=== PATIENT | female | born 1965 | race American Indian/Alaskan Native ===

== ENCOUNTER 2017-10-02 15:27 | Emergency (ER) | payer MEDICAID ==
[2017-10-02 15:37] VITALS: BP 179/81
--- NOTE | 2017-10-02 17:09 | Emergency Department Report ---
ED ENT HPI - General Chief complaint: Earache Stated complaint: LEFT EAR SWELLING/INSIDE MOUTH Time Seen by Provider: 10/02/17 16:49 Source: patient Mode of arrival: Ambulatory Limitations: No Limitations - History of Present Illness Initial comments: 51-year-old female past medical history hypertension presents with complaint of 2-3 days of left-sided facial swelling left-sided earache and discomfort. Patient denies fevers or chills. Speaking in full sentences. No trismus and no drooling noted. No dyspnea no respiratory distress and no retractions. Patient is able to speak in full sentences. Denies nausea or vomiting. Denies any trauma to face. States she feels pressure inside the left side of her mouth along in her cheek. Onset/Timin -: days(s) Location: L ear Severity: moderate Severity scale (0 -10): 6 Quality: aching Consistency: constant Improves with: none Worsens with: none Associated Symptoms: gum swelling - Related Data Previous Rx's Medication Instructions Recorded Last Taken Type Acetaminophen/Codeine [Tylenol 1 tab PO Q6H PRN #10 tab 10/02/17 Unknown Rx /Codeine # 3 tab] Ciprofloxacin HCl [Cipro] 500 mg PO BID #14 tablet 10/02/17 Unknown Rx Clindamycin [Clindamycin CAP] 300 mg PO Q6H #28 capsule 10/02/17 Unknown Rx Ibuprofen [Motrin] 800 mg PO Q8HR PRN #30 tablet 10/02/17 Unknown Rx Allergies Allergy/AdvReac Type Severity Reaction Status Date / Time iodine Allergy Swelling Verified 10/02/17 15:32 morphine Allergy Unknown Verified 10/02/17 15:32 Penicillins Allergy Unknown Verified 10/02/17 15:32 ED Dental HPI - General Chief complaint: Earache Stated complaint: LEFT EAR SWELLING/INSIDE MOUTH Time Seen by Provider: 10/02/17 16:49 Source: patient Mode of arrival: Ambulatory Limitations: No Limitations - Related Data Previous Rx's Medication Instructions Recorded Last Taken Type Acetaminophen/Codeine [Tylenol 1 tab PO Q6H PRN #10 tab 10/02/17 Unknown Rx /Codeine # 3 tab] Ciprofloxacin HCl [Cipro] 500 mg PO BID #14 tablet 10/02/17 Unknown Rx Clindamycin [Clindamycin CAP] 300 mg PO Q6H #28 capsule 10/02/17 Unknown Rx Ibuprofen [Motrin] 800 mg PO Q8HR PRN #30 tablet 10/02/17 Unknown Rx Allergies Allergy/AdvReac Type Severity Reaction Status Date / Time iodine Allergy Swelling Verified 10/02/17 15:32 morphine Allergy Unknown Verified 10/02/17 15:32 Penicillins Allergy Unknown Verified 10/02/17 15:32 ED Review of Systems ROS: Stated complaint: LEFT EAR SWELLING/INSIDE MOUTH Other details as noted in HPI Constitutional: denies: chills, fever Eyes: denies: eye pain, eye discharge, vision change ENT: as per HPI (left-sided cheek swelling 2-3m days). denies: ear pain, throat pain Respiratory: denies: cough, shortness of breath, wheezing Cardiovascular: denies: chest pain, palpitations Endocrine: no symptoms reported Gastrointestinal: denies: abdominal pain, nausea, diarrhea Genitourinary: denies: urgency, dysuria, discharge Musculoskeletal: denies: back pain, joint swelling, arthralgia Skin: denies: rash, lesions Neurological: denies: headache, weakness, paresthesias Psychiatric: denies: anxiety, depression Hematological/Lymphatic: denies: easy bleeding, easy bruising ED Past Medical Hx - Past Medical History Previous Medical History?: Yes Hx Hypertension: Yes Hx Psychiatric Treatment: Yes (anxiety) Additional medical history: anemia - Surgical History Past Surgical History?: Yes Additional Surgical History: tubaligation, x 2 - Social History Smoking Status: Never Smoker Substance Use Type: Alcohol, Prescribed - Medications Home Medications: Home Medications Medication Instructions Recorded Confirmed Last Taken Type Acetaminophen/Codeine [Tylenol 1 tab PO Q6H PRN #10 tab 10/02/17 Unknown Rx /Codeine # 3 tab] Ciprofloxacin HCl [Cipro] 500 mg PO BID #14 tablet 10/02/17 Unknown Rx Clindamycin [Clindamycin CAP] 300 mg PO Q6H #28 capsule 10/02/17 Unknown Rx Ibuprofen [Motrin] 800 mg PO Q8HR PRN #30 tablet 10/02/17 Unknown Rx ED Physical Exam - General Limitations: No Limitations General appearance: alert, in no apparent distress - Head Head exam: Present: atraumatic, normocephalic - Eye Eye exam: Present: normal appearance, PERRL, EOMI - ENT ENT exam: Present: mucous membranes moist - Expanded ENT Exam Expanded Mouth exam: Present: other (swelling inside left inner cheek) Teeth exam: Present: normal inspection Throat exam: Positive: normal inspection - Neck Neck exam: Present: normal inspection, tenderness (left side angle of jaw parotid gland swelling), lymphadenopathy (left anterior cervical adenopathy) - Expanded Neck Exam Expanded Neck exam: Present: tenderness, anterior neck swelling 1 - Tenderness and swelling here - Respiratory Respiratory exam: Present: normal lung sounds bilaterally. Absent: respiratory distress - Cardiovascular Cardiovascular Exam: Present: regular rate, normal rhythm. Absent: systolic murmur, diastolic murmur, rubs, gallop - GI/Abdominal GI/Abdominal exam: Present: soft, normal bowel sounds - Extremities Exam Extremities exam: Present: normal inspection - Back Exam Back exam: Present: normal inspection - Neurological Exam Neurological exam: Present: alert, oriented X3 - Psychiatric Psychiatric exam: Present: normal affect, normal mood - Skin Skin exam: Present: warm, dry, intact, normal color. Absent: rash ED Course Vital Signs 10/02/17 15:32 Temperature 97.6 F Pulse Rate 75 Respiratory 18 Rate Blood Pressure 179/81 O2 Sat by Pulse 96 Oximetry ED Medical Decision Making - Medical Decision Making A/P: Sided acute parotitis 1-case discussed with Dr. Pires who also examined the patient 2-empiric course of clindamycin and ciprofloxacin as per [email or web address] source=search_[email or web address]~[email or web address]_type=default&display_rank=1# [id number] 3-Motrin when necessary, short course codeine when necessary sialagogues 4-I advised patient to follow up with ENT Critical care attestation.: If time is entered above; I have spent that time in minutes in the direct care of this critically ill patient, excluding procedure time. ED Disposition Clinical Impression: Parotitis, acute Disposition: DC-01 TO HOME OR SELFCARE Is pt being admited?: No Does the pt Need Aspirin: No Condition: Stable Instructions: Mumps (ED), Sialoadenitis (ED) Prescriptions: Acetaminophen/Codeine [Tylenol /Codeine # 3 tab] 1 tab PO Q6H PRN #10 tab PRN Reason: Pain Ciprofloxacin HCl [Cipro] 500 mg PO BID #14 tablet Clindamycin [Clindamycin CAP] 300 mg PO Q6H #28 capsule Ibuprofen [Motrin] 800 mg PO Q8HR PRN #30 tablet PRN Reason: Pain Referrals: [facility] [Outside] - 3-5 Days [facility] [Outside] - 3-5 Days JAYLEN MCCARTHY MD [Staff Physician] - 3-5 Days ENT [facility] [Provider Group] - 3-[address] [facility] [Provider Group] - 3-5 Days Forms: Accompanied Note, Work/School Release Form(ED) Time of Disposition: 17:10
[2017-10-02] MEDS ORDERED: TYLENOL #3 PO ONE (17:21)
== END 2017-10-02 17:30 | disposition home or self-care (01) ==
LOC: ED 15:27
DX: K11.21 Acute sialoadenitis (principal); I10 Essential (primary) hypertension; F41.9 Anxiety disorder, unspecified; D64.9 Anemia, unspecified; Z88.5 Allergy status to narcotic agent; Z88.0 Allergy status to penicillin; Z88.8 Allergy status to other drugs, medicaments and biological substances
CPT/HCPCS: 99282